=== PATIENT | male | born 1950 | race Caucasian/White ===

== ENCOUNTER 2017-10-24 05:25 | Emergency (ER) | payer OTHER | END 2017-10-24 09:06 | disposition home or self-care (01) | LOC: FTE 05:25 | DX: L03.031 Cellulitis of right toe (principal) | CPT/HCPCS: 10060; 99283-25 ==

== ENCOUNTER 2017-10-26 09:36 | Emergency (ER) | payer OTHER | END 2017-10-26 10:49 | disposition home or self-care (01) | LOC: E/R 09:36 | DX: Z48.01 Encounter for change or removal of surgical wound dressing (principal) | CPT/HCPCS: 99281 ==